=== PATIENT | male | born 1990 | race Caucasian/White ===

== ENCOUNTER 2020-12-03 18:57 | Emergency (ER) | payer OTHER ==
[~2020-12-03] VITALS: Ht 182.9 cm; Wt 81.6 kg
[2020-12-03 19:13] VITALS: BP 145/87
[2020-12-03] MEDS ORDERED: cefTRIAXone 500 MG in LIDOCAINE MPF 1% 1 ML IM ONE (19:30)
[2020-12-03] MEDS ORDERED: cefTRIAXone 500 MG VIAL ONE (20:09)
[2020-12-03] MEDS ORDERED: LIDOCAINE MPF 1% 5 ML ONE (20:09)
[2020-12-03 20:17] VITALS: BP 145/87
--- NOTE | 2020-12-03 20:18 | NUR ---
PT WAS SEEN IN TRIAGE BY PA. WAS TREATED WITHOUT NURSING INTERVENTIONS.Patient discharged with v/s stable. Written and verbal after care instructions given and explained. Patient alert, oriented and verbalized understanding of instructions. Ambulatory with steady gait. All questions addressed prior to discharge. ID band removed. Patient advised to follow up with PMD. Rx of DOXYCYCLINE given. Patient educated on indication of medication including possible reaction and side effects. Opportunity to ask questions provided and answered.
--- NOTE | 2020-12-07 13:30 | NUR ---
LATE ENTRY----LAB CALLED WITH + CHLAMYDIA AND + GONNERHEA RESULTS. REQUESTED A HARD COPY FROM LAB TO PLACE IN [facility]FE[facility]S MAILBOX.
== END 2020-12-03 20:18 | disposition home or self-care (01) ==
LOC: MED 18:57
DX: R36.9 Urethral discharge, unspecified (principal); R30.0 Dysuria; Z11.3 Encounter for screening for infections with a predominantly sexual mode of transmission
CPT/HCPCS: 36415; 81002; 87491; 96372; 99283; J0696; J2001

== ENCOUNTER 2021-10-06 08:01 | Emergency (ER) | payer OTHER ==
[~2021-10-06] VITALS: Ht 182.9 cm; Wt 88.9 kg
[2021-10-06 08:10] VITALS: BP 153/89
--- NOTE | 2021-10-06 09:20 | NUR ---
PATIENT LEFT WITHOUT BEING SEEN BY DR. GRANT. NO FURTHER CARE PROVIDED FOR PATIENT.DR GRANT CALLED PT NA 0923-DR GRANT CALLED PT NA 0910-DR GRANT CALLED PT NA
== END 2021-10-06 09:20 | disposition left against medical advice (07) ==
LOC: MED 08:01
DX: R09.81 Nasal congestion (principal); Z53.21 Procedure and treatment not carried out due to patient leaving prior to being seen by health care provider